=== PATIENT | female | born 1985 | race Caucasian/White ===

== ENCOUNTER 2021-05-06 10:16 | Outpatient (CLI) | payer OTHER ==
[~2021-05-06 10:16] MED LIST: BACTRIM DS TAB1 EACH PO; KETO10TA2 PO; TAMS0.4C PO
== END 2021-05-06 10:39 | disposition home or self-care (01) ==
LOC: RX STUDY 10:16
PROVIDERS: ATTEND Obstetrics & Gynecology
DX: N70.11 Chronic salpingitis (principal)